=== PATIENT | female | born 1985 | race Hispanic/Latino ===

== ENCOUNTER 2017-03-16 04:46 | Emergency (ER) | payer MEDICAID ==
[2017-03-16 05:26] LABS: Eosinophils % (Auto) 2.1 % (0.0-4.3); Hematocrit 40.1 % (30.3-42.9); Hemoglobin 13.8 gm/dl (10.1-14.3); Mean Corpuscular HGB Conc 35 % (30-34); Mean Corpuscular Hemoglobin 29 pg (28-32); Mean Corpuscular Volume 85 fl (79-97); Platelet Count 354 K/mm3 (140-440); Red Blood Count 4.71 M/mm3 (3.65-5.03); White Blood Count 10.7 K/mm3 (4.5-11.0)
[2017-03-16 05:48] LABS: Alanine Aminotransferase 17 units/L (7-56); Albumin 4.1 g/dL (3.9-5); Albumin/Globulin Ratio 1.3 %; Alkaline Phosphatase 60 units/L (35-129); Anion Gap 19 mmol/L; Blood Urea Nitrogen 9 mg/dL (7-17); Calcium 8.9 mg/dL (8.4-10.2); Carbon Dioxide 21 mmol/L (22-30); Chloride 100.2 mmol/L (98-107); Glucose 94 mg/dL (65-100); Potassium 3.9 mmol/L (3.6-5.0); Sodium 136 mmol/L (137-145); Total Protein 7.2 g/dL (6.3-8.2)
[2017-03-16 06:06] LABS: Bilirubin,Urine NEG (Negative); Blood,Urine MOD (Negative); Ketones,Urine NEG (Negative); Leukocyte Esterase,Urine TR (Negative); Nitrite,Urine NEG (Negative); Protein,Urine <15 mg/dL mg/dL (Negative); Urobilinogen,Urine < 2.0 mg/dL (<2.0)
[2017-03-16] MEDS ORDERED: TORADOL IM ONE (10:05)
--- NOTE | 2017-03-16 10:07 | Emergency Department Report ---
HPI - General Chief Complaint: Abdominal Pain Time Seen by Provider: 03/16/17 09:47 - HPI HPI: This is a 31-year-old female presents to the emergency department with complaint of pain towards the pelvis and/or vagina that has been going on for the past 4-5 days. It got very sharp today which is what brought her in to be seen. The patient has a history of kidney stones and says that she thinks she might be passing a stone and she has had this pain in the past. She says she has required "surgery" for kidney stones in the past as well. She also has a past medical history of arthritis and GERD. At first the patient thought she might be having a yeast infection and took Diflucan but it did not get any better. However she denies any vaginal bleeding, vaginal discharge but does have some dysuria or pressure when urinating. She denies any fever, nausea, vomiting. Primary care doctor is Dr. Romel Spence. She also has a urologist. ED Past Medical Hx - Past Medical History Previous Medical History?: Yes Hx GERD: Yes Hx Renal Disease: Yes (kidney stones) Hx Arthritis: Yes Hx Kidney Stones: Yes - Surgical History Past Surgical History?: Yes Additional Surgical History: Surgery for kidney stone 08/20/2013 - Social History Smoking Status: Current Every Day Smoker Substance Use Type: None - Medications Home Medications: Home Medications Medication Instructions Recorded Confirmed Last Taken Type ALPRAZolam [Alprazolam] 1 mg PO PRN PRN 11/18/15 11/24/15 11/23/15 History Omeprazole [PriLOSEC] 20 mg PO QDAY PRN 11/18/15 11/24/15 11/21/15 History HYDROcodone/APAP 5-325 [[place] 1 each PO Q6HR PRN #10 tablet 03/16/17 Unknown Rx 5-325 mg TAB] ED Review of Systems ROS: Stated complaint: FLANK PAIN Other details as noted in HPI Comment: All other systems reviewed and negative Constitutional: denies: chills, fever Eyes: denies: eye pain, eye discharge, vision change ENT: denies: ear pain, throat pain Respiratory: denies: cough, shortness of breath, wheezing Cardiovascular: denies: chest pain, palpitations Gastrointestinal: denies: nausea, vomiting Genitourinary: dysuria, other (pelvic/vaginal pain) Musculoskeletal: denies: back pain, joint swelling, arthralgia Skin: denies: rash, lesions Neurological: denies: headache, weakness, paresthesias Physical Exam - Physical Exam Vital Signs: Vital Signs 03/16/17 05:02 Temperature 98.7 F Pulse Rate 62 Respiratory 18 Rate Blood Pressure 123/85 O2 Sat by Pulse 99 Oximetry Physical Exam: GENERAL: The patient is well-developed well-nourished. HEENT: Normocephalic. Atraumatic. Extraocular motions are intact. Patient has moist mucous membranes. Pupils equal reactive to light bilaterally. NECK: Supple. Trachea is mid line. CHEST/LUNGS: Clear to auscultation. There is no respiratory distress noted. HEART/CARDIOVASCULAR: Regular. There is no tachycardia. There is no gallop rub or murmur. ABDOMEN: Abdomen is soft, nontender. Patient has normal bowel sounds. There is no abdominal distention. SKIN: Skin is warm and dry. NEURO: The patient is awake, alert, and oriented. The patient is cooperative. The patient has no focal neurologic deficits. The patient has normal speech. MUSCULOSKELETAL: There is no tenderness or deformity. There is no limitation range of motion. There is no evidence of acute injury. ED Course Vital Signs 03/16/17 05:02 Temperature 98.7 F Pulse Rate 62 Respiratory 18 Rate Blood Pressure 123/85 O2 Sat by Pulse 99 Oximetry ED Medical Decision Making - Lab Data Result diagrams: 03/16/17 05:09 03/16/17 05:09 - Medical Decision Making 31-year-old female presents with concern for possible kidney stone as she has some pressure in her discomfort towards the vagina which is where she says she previously has had pain from a kidney stone. She denies any vaginal bleeding, vaginal discharge, dysuria but trying to urinate does make it worse. It is been going on for 5 days but became sharper earlier today. She has not taken anything for symptoms. Her labs are most unremarkable. There is no urinary tract infection, significant hematuria and the patient is not . The rest the labs are also unremarkable and do not show any etiology of her symptoms. I told the patient that we should do a CT of the abdomen and pelvis without contrast to look along the urinary tract for calculus versus other etiology of her symptoms. However the patient was already late for work and did not want to stay for any further workup. She says she has follow-up with a primary care doctor and a urologist. She was encouraged to follow up with these physicians but return to the emergency department with any worsening of her symptoms or if she changes her mind regarding the CT imaging. - Differential Diagnosis nephrolithiasis, fibroid, UTI, Critical Care Time: No Critical care attestation.: If time is entered above; I have spent that time in minutes in the direct care of this critically ill patient, excluding procedure time. ED Disposition Clinical Impression: History of kidney stones, Vaginal discomfort Disposition: DC- TO HOME OR SELFCARE Is pt being admited?: No Condition: Stable Instructions: Renal Colic (ED) Additional Instructions: Please follow-up with your primary care doctor in the next few days regarding your symptoms. Return to the emergency department with any worsening of her symptoms, if you change your mind about CT or ultrasound imaging, or with any acute distress. You've been prescribed a medication that is sedating. Therefore this medication cannot be mixed with alcohol, or taken prior to driving, working, or being responsible for children. Prescriptions: HYDROcodone/APAP 5-325 [[place] 5-325 mg TAB] 1 each PO Q6HR PRN #10 tablet PRN Reason: Pain Referrals: PRIMARY CARE, [Primary Care Provider] - 3-5 Days
[2017-03-16 10:22] VITALS: BP 128/67
== END 2017-03-16 10:23 | disposition home or self-care (01) ==
LOC: ED 04:46
DX: R10.2 Pelvic and perineal pain (principal); K21.9 Gastro-esophageal reflux disease without esophagitis; M19.90 Unspecified osteoarthritis, unspecified site; F17.200 Nicotine dependence, unspecified, uncomplicated; Z87.442 Personal history of urinary calculi
CPT/HCPCS: 36415; 80053; 81001; 84703; 85025; 96372; 99283; J1885

== ENCOUNTER 2017-09-03 15:27 | Emergency (ER) | payer MEDICAID | END 2017-09-03 15:39 | disposition left against medical advice (07) | LOC: ED 15:27 | DX: M54.9 Dorsalgia, unspecified (principal); Z53.21 Procedure and treatment not carried out due to patient leaving prior to being seen by health care provider ==

== ENCOUNTER 2019-07-31 18:28 | Emergency (ER) | payer MEDICAID ==
[2019-07-31 18:34] VITALS: BP 153/77
--- NOTE | 2019-07-31 18:35 | Emergency Department Report ---
Blank Doc - Documentation Documentation: 33-year-old female that presents with nosebleed and headaches. Stated is acute. This initial assessment/diagnostic orders/clinical plan/treatment(s) is/are subject to change based on patient's health status, clinical progression and re- assessment by fellow clinical providers in the ED. Further treatment and workup at subsequent clinical providers discretion. Patient/guardians urged not to elope from the ED as their condition may be serious if not clinically assessed and managed. Initial orders include: 1- Patient sent to [facility] for further evaluation and treatment 2- CT
--- NOTE | 2019-07-31 21:41 | Emergency Department Report ---
Minor Respiratory - HPI Chief Complaint: Headache Stated Complaint: NOSE BLEED Time Seen by Provider: 07/31/19 18:33 Minor Respiratory: Yes Rhinorrhea, Yes Able to Tolerate Fluids, No Sore Throat, No Ear Pain, No Cough, No Sick Contacts, No Hemoptysis, No Chest Pain, No Shortness of Breath, No Fever Other History: This is a 33-year-old healthy female who presents to ED complaining of 2 episodes of nosebleed best study yesterday. Patient states thatit lasted a couple of minutes and then resolves. Patient states that she also had another episode today. Patient presents today to be evaluated. Patient noted that she had cold-like symptoms with sneezing, runny nose for the past 3-4 days. Patient also stated that she is sleeping under a fan for the past week. She denies any trauma or injuries. She also denies any genetic bleeding disorder ED Review of Systems ROS: Stated complaint: NOSE BLEED Other details as noted in HPI Comment: All other systems reviewed and negative ED Past Medical Hx - Past Medical History Previous Medical History?: Yes Hx GERD: Yes Hx Renal Disease: Yes (Stones in the past) Hx Arthritis: Yes (GENERALIZED; HANDS AND JOINTS) Hx Kidney Stones: Yes (MEDICAL INTER REQ.) Hx HIV: No - Surgical History Past Surgical History?: Yes Additional Surgical History: Surgery for kidney stone 08/20/2013 - Social History Smoking Status: Former Smoker Substance Use Type: Alcohol - Medications Home Medications: Home Medications Medication Instructions Recorded Confirmed Last Taken Type ALPRAZolam [Xanax TAB] 2 mg PO TID PRN 07/30/19 07/30/19 Unknown History Carisoprodol [Soma] 350 mg PO TID PRN 07/30/19 07/30/19 Unknown History Ibuprofen [Motrin] 800 mg PO Q8HR PRN 07/30/19 07/30/19 Unknown History Oxymetazoline 0.05% [Vicks Sinex] 1 spray NS DAILY #1 bottle 07/31/19 Unknown Rx Minor Respiratory Exam - Exam General: Vital signs noted. No distress. Alert and acting appropriately. HEENT: Yes Moist Mucous Membranes, Yes Rhinorrhea (greenish, clear turbinates, no bleeding noted), No Pharyngeal Erythema, No Pharyngeal Exudates, No Conjuctival Injection, No Frontal Tenderness, No Maxillary Tenderness Ear: Neither TM Bulge, Neither TM Erythema, Neither EAC Pain, Neither EAC Discharge Neck: Yes Supple, No Adenopathy Lungs: Yes Good Air Exchange, No Wheezes, No Ronchi, No Stridor, No Cough, No Labored Respirations, No Retractions, No Use of Accessory Muscles, No Other Ab normal Lung Sounds Heart: Yes Regular, No Murmur Abdomen: Yes Normal Bowel Sounds, No Tenderness, No Peritoneal Signs Skin: No Rash, No Edema Neurologic: Alert and oriented, no deficits. Musculoskeletal: Unremarkable. ED Course Vital Signs 07/31/19 18:33 Temperature 97.4 F L Pulse Rate 16 L Respiratory 16 Rate Blood Pressure 153/77 O2 Sat by Pulse 96 Oximetry ED Medical Decision Making - Medical Decision Making 33-year-old female presents with epistaxis. ED course: Patient had no bleeding episode a during ED stay. Discussed with mother proper techniques to stop the nosebleeds. Discussed with mother to call ENT doctor as referred. Discussed with patient's mother return if the nosebleed episodes returned without stopping to return to ED Discussed so medication of nasal spray to decrease episodes. Patient's mother verbalizes that she understands and will follow up with the ENT specialist. Vital signs are stable. Patient is in no acute respiratory distress. Critical care attestation.: If time is entered above; I have spent that time in minutes in the direct care of this critically ill patient, excluding procedure time. ED Disposition Clinical Impression: Anterior epistaxis Disposition: DC-01 TO HOME OR SELFCARE Is pt being admited?: No Does the pt Need Aspirin: No Condition: Stable Instructions: Epistaxis (ED), Upper Respiratory Infection (ED) Additional Instructions: Make sure to follow up with the primary care physician as discussed. Take all your medications as you've been prescribed. If you have any worsening symptoms or develop new symptoms please return to ED immediately. Prescriptions: Oxymetazoline 0.05% [Vicks Sinex] 1 spray NS DAILY #1 bottle Referrals: PRIMARY CARE, [Primary Care Provider] - 3-5 Days Forms: AMA Form, Accompanied Note, Work/School Release Form(ED) Time of Disposition: 21:44
== END 2019-07-31 21:45 | disposition home or self-care (01) ==
LOC: ED 18:28
DX: R04.0 Epistaxis (principal); K21.9 Gastro-esophageal reflux disease without esophagitis; M19.90 Unspecified osteoarthritis, unspecified site; F10.10 Alcohol abuse, uncomplicated; Z87.442 Personal history of urinary calculi; Z79.899 Other long term (current) drug therapy; Z87.891 Personal history of nicotine dependence

== ENCOUNTER 2019-08-01 11:01 | Observation (INO) | payer MEDICAID ==
--- NOTE | 2019-07-31 10:20 | Anesthesia Consultation ---
Anesthesia Consult and Med Hx Date of service: 07/31/19 - Airway Anesthetic Teeth Evaluation: Chipped (Missing) ROM Head & Neck: Adequate Mental/Hyoid Distance: Adequate Mallampati Class: Class II Intubation Access Assessment: Good - Pre-Operative Health Status ASA Pre-Surgery Classification: ASA2 Proposed Anesthetic Plan: General Nerve Block: TAP - Pulmonary Hx Smoking: Yes (1 PPD SINCE AGE 19; QUIT 11/2018) - Central Nervous System Hx Neuromuscular Disorder: Yes (arthritis) Hx Psychiatric Problems: Yes (Anxiety) - Gastrointestinal Hx Gastroesophageal Reflux Disease: Yes (Mild-no RX) - Endocrine Hx Renal Disease: Yes (Stones in the past) - Other Systems Hx Alcohol Use: Yes (OCCA) Hx Substance Use: No Hx Cancer: No Hx Obesity: Yes
[2019-07-31 10:26] LABS: Basophils # (Auto) 0.1 K/mm3 (0.0-0.1); Basophils % (Auto) 0.6 % (0.0-1.8); Eosinophils # (Auto) 0.1 K/mm3 (0.0-0.4); Eosinophils % (Auto) 0.8 % (0.0-4.3); Hematocrit 35.6 % (30.3-42.9); Hemoglobin 12.2 gm/dl (10.1-14.3); Lymphocytes % (Auto) 19.8 % (13.4-35.0); Mean Corpuscular HGB Conc 34 % (30-34); Mean Corpuscular Volume 83 fl (79-97); Monocytes # (Auto) 0.7 K/mm3 (0.0-0.8); Monocytes % (Auto) 6.7 % (0.0-7.3); Platelet Count 365 K/mm3 (140-440); Red Blood Count 4.27 M/mm3 (3.65-5.03); Red Cell Distribution Width 12.5 % (13.2-15.2)
[2019-08-01] MEDS ORDERED: BUPIVACAINE-EPINEPHRINE/PF 0.25%-1:200,000 (30 ML) VIAL INFILTRATI ONE (11:02)
[2019-08-01] MEDS ORDERED: fentaNYL 100 MCG/2 ML INJ IV NR (11:02)
[2019-08-01] MEDS ORDERED: dexAMETHasone 4 MG/ML VIAL ONE (11:02)
--- NOTE | 2019-08-01 11:04 | Anesthesia Day of Surgery ---
Anesthesia Day of Surgery - Day of Surgery Patient Examined: Yes Patient H&P Reviewed: Yes Patient is NPO: Yes
[2019-08-01] MEDS ORDERED: OXYMETAZOLINE 0.05% NASAL SPRAY NS ONE (11:11)
[2019-08-01] MEDS ORDERED: ceFAZolin/STERILE WATER 2 GM/20 ML SYRINGE IV NR (11:25)
[2019-08-01] MEDS ORDERED: LACTATED RINGERS 1,000 ML IV SCH (12:00)
[2019-08-01] MEDS ORDERED: MIDAZOLAM 2 MG/2 ML INJ IV NR (12:00)
[2019-08-01] MEDS ORDERED: GABAPENTIN 300 MG CAP PO NR (12:00)
[2019-08-01] MEDS ORDERED: CELECOXIB 200 MG CAP PO NR (12:00)
[2019-08-01] MEDS ORDERED: NEOMY 40 MG/POLYMYXIN B 200,000 UNITS/ML (GU) AMPULE IR ONE ×2 (12:03→13:48)
[2019-08-01] MEDS ORDERED: fentaNYL 100 MCG/2 ML INJ ONE (12:14)
[2019-08-01] MEDS ORDERED: PROPOFOL 200 MG/20 ML VIAL IV ONE (12:15)
[2019-08-01] MEDS ORDERED: ROCURONIUM 50 MG/5 ML INJ IV ONE (12:16)
[2019-08-01] MEDS ORDERED: dexAMETHasone 20 MG/5 ML VIAL ONE (12:19)
[2019-08-01] MEDS ORDERED: LIDOCAINE MPF (2%) 20 MG/1 ML VIAL 5 ML ONE (13:24)
[2019-08-01] MEDS ORDERED: HYDROmorphone 1 MG/1 ML INJ ONE (13:25)
[2019-08-01] MEDS ORDERED: BUPIVACAINE/PF (0.5%) 5 MG/1 ML 30 ML VIAL INFILTRATI ONE ×2 (13:30→15:19)
[2019-08-01] MEDS ORDERED: WATER FOR IRRIG STERILE 1,500 ML BOTTLE IR ONE (13:48)
[2019-08-01] MEDS ORDERED: SODIUM CHLORIDE 0.9% IRRIG SOLN 2000 ML IR ONE (13:48)
[2019-08-01] MEDS ORDERED: SODIUM CHLORIDE 0.9% IRR 1,500 ML BOTTLE IR ONE (13:48)
[2019-08-01] MEDS ORDERED: LACTATED RINGERS 1,000 ML ONE (14:28)
[2019-08-01] MEDS ORDERED: ONDANSETRON 4 MG/2 ML INJ ONE (15:00)
[2019-08-01] MEDS ORDERED: NEOSTIGMINE 10MG/10 ML INJ MDV ONE (15:22)
[2019-08-01] MEDS ORDERED: GLYCOPYRROLATE 0.4 MG/2 ML INJ ONE (15:22)
[2019-08-01] MEDS ORDERED: KETOROLAC 30 MG/1 ML INJ ONE (15:31)
[2019-08-01] MEDS ORDERED: ONDANSETRON 4 MG ODT TAB PO PRN (15:44)
[2019-08-01] MEDS: HYDROmorphone 1 MG/1 ML INJ IV PRN ×2 (15:55→16:05)
[2019-08-01] MEDS ORDERED: D5W/LACTATED RINGERS 1,000 ML IV SCH (16:00)
--- NOTE | 2019-08-01 18:45 | Post Operative Note ---
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 Sounded to 8-9 cm. No evidence of endometriosis. Normal tubes and ovaries (h/O BTL) except on the left, pt has some mild-moderate omental adhesions to the left tube and side wall. Grossly normal abdominal survey. Procedure: 1) Robotic total hysterectomy 2) B/L salpingectomies 3) lysis of adhesions. Procedure: Patient was taken to the operating room and prepped and draped in the usual fashion. Attention was first turned vaginally where the [employer] care uterine manipulator was placed. Large cup was selected and it was placed successfully and without difficulty. Anchoring 0 Vicryl stitches 2 were placed on the cervix. The [place] catheter was then placed in the usual sterile fashion. Attention was then turned abdominally to the left upper quadrant. In the midclavicular line about 2 finger breaths under the costal margin an 8 mm incision was made. Veress needle placed abdominal cavity and the abdomen was insufflated with CO2 gas. There is needle removed and the 8 mm trocar was placed. Placement confirmed with the camera. Attention at this point was turned to the placement of the 3 robotic trochars. First the umbilical 10-12 mm trocar site was made. The trocar was placed successfully and without difficulty. Attention was then turned bilaterally where about 2 finger breadths superior and medial to the ASIS on both sides, an 8 millimeter incision was made. Bilateral 8 mm trochars were then placed under direct visualization and were done successfully without difficulty. Patient then placed in steep Trendelenburg and the robot arms were docked into the trochars at this point. I broke scrub at this point and proceeded to the da Callie console. Attention was first turned to evaluation of the pelvis. Findings noted above. Ureteral peristalsis was noted both at the beginning of the case and at the end of the case. Attention was first turned to the right adnexa. The right fallopian tube was dissected off its attachments using the vessel sealer. Ovarian ligament was clamped and cauterized and cut with the vessel sealer as well. Dissection carried down to the round ligament with the vessel sealer nonetheless sealer clamp cauterizing cut the round ligament. Attention was then turned to the left side. The above noted omental adhesions were lysed using combination of sharp and blunt dissection. Good hemostasis was noted after this portion of the procedure and the left adnexa was much better visualize at this point. At this point the left tube was dissected off in the same fashion as it was on the right and the dissection carried all the way down to and through the round ligament with the vessel sealer was done with equal success on the left side as was on the right. This also included clamping cutting and cauterizing the left ovarian ligament as well. Good hemostasis noted and the ovaries appeared healthy and remained intact. Attention was then turned to creation of the bladder flap which was done successfully using the monopolar scissors. At this point the indentation of the V care Cup was identified anteriorly. Colpotomy incision was made and the V care cuff was clearly visualized. This incision was then extended bilaterally on the anterior side. Attention was then turned posteriorly where the posterior peritoneal flap was created bilaterally. The posterior V care cup indentation was then identified. Colpotomy incision was made posteriorly and the V care cup was identified. The colpotomy incision was then extended bilaterally on the posterior side. At this point attention was tu rned to the left side where the uterine vasculature was skeletonized using the vessel sealer. And then the uterine vasculature was clamped cauterized and cut using the vessel sealer. Good hemostasis was noted. The colpotomy on this left side was then completed. Attention was then turned to the right side where the procedure was done in the exact same fashion and the uterine vasculature was cla mped cauterized and cut with the vessel sealer. Good hemostasis noted and the colpotomy was completed on this side and now the colpotomy was completed 360. Uterus and tubes were removed vaginally at this point. The vaginal cuff was now closed using 0V lock suture in a running fashion. Vaginal cuff was closed successfully and good hemostasis noted. The vaginal cuff was also now able to maintain the pneumoperitoneum on its own. The abdomen was desufflated at this point. Good hemostasis was still noted. Abdomen was then reinsufflated. Pelvis was well irrigated. Mauricio was then applied to all the areas of dissection. Good hemostasis noted throughout and the robotic portion of the procedure was now complete. The robot was undocked and I scrubbed back into the case. Attention was turned vaginally where the vaginal cuff was inspected both visually and with palpation and good integrity was noted. No active bleeding was noted. Attention was now turned laparoscopically. Abdomen and pelvis were assessed more time and good hemostasis noted throughout. At this point the tendon 12 mm umbilical trocar was removed and that site was closed using 0 Vicryl and the Thomas-Corey device. Fascia was closed successfully at that site. At this point the abdomen was fully desufflated. Patient was taken out of Trendelenburg. Attention was turned to closure of the three 8 mm trocar sites which were done in a subcuticular fashion using 4-0 Vicryl. The umbilical trocar site was also closed with 4-0 Vicryl. Local Marcaine applied to all of the trocar sites and the procedure was concluded at this point. Patient tolerated the procedure well. All instrument and lap counts were correct. Patient was taken recovery room in stable condition. Anesthesia: MARYSOL Surgeon: PERLA MUHAMMAD Product Engineering Manager: JUAN SILVA Estimated blood loss: minimal Pathology: list (uterus and tubes) Condition: stable Disposition: PACU
[2019-08-01] MEDS: HYDROcodone/ACETAMINOPHEN 5-325 MG TAB PO PRN (20:40)
--- NOTE | 2019-08-01 21:08 | Post Anesthesia Evaluation ---
- Post Anesthesia Evaluation Patient Participated: Yes Airway Patent: Yes Stable Respiratory Function: Yes Nausea/Vomiting: No Temp > 96.8F: Yes Pain Manageable: Yes Adequeate Hydration: Yes Anesthesia Complications: No Block Receding Appropriately: Yes Patient on Ventilator: No
[2019-08-02] MEDS: IBUPROFEN 600 MG TAB PO PRN ×2 (00:20→09:04)
[2019-08-02] MEDS: HYDROcodone/ACETAMINOPHEN 5-325 MG TAB PO PRN ×2 (03:34→09:05)
[2019-08-02 06:56] LABS: Hematocrit 35.3 % (30.3-42.9); Hemoglobin 11.8 gm/dl (10.1-14.3)
--- NOTE | 2019-08-02 07:01 | Progress Note ---
Assessment and Plan - Patient Problems (1) S/P hysterectomy Current Visit: Yes Status: Acute Plan to address problem: stable POD 1 s/p RAH. PT doing well. Assuming Hgn is WNL and pt can void, pt can go home RTO 2 weeks. Subjective - Subjective Date of service: 08/02/19 Interval history: POD 1 Patient reports: no vaginal bleeding (PT doing well. Positive OOB amb, positive flatus, positve regular diet. Good urine output. Samayoa just removed. Good pain control.) Objective - Vital Signs Vital Signs: Vital Signs - 12hr 08/01/19 08/01/19 08/02/19 19:39 23:03 03:35 Temperature 98.1 F 98.0 F Pulse Rate 95 H 102 H 58 L Respiratory 20 18 Rate Blood Pressure 137/74 135/72 121/70 O2 Sat by Pulse 96 97 91 Oximetry 08/02/19 03:50 Temperature 98.2 F Pulse Rate 70 Respiratory Rate Blood Pressure O2 Sat by Pulse Oximetry - Exam Abdomen: Present: normal appearance, soft (appropriately tender. Wounds C/D/I) - Labs Labs: Abnormal Labs 07/31/19 09:55 RDW 12.5 L Seg Neutrophils % 72.1 H Laboratory Results - last 24 hr 08/01/19 08/02/19 11:30 06:03 Hgb 11.8 Hct 35.3 Blood Type O POSITIVE Antibody Screen Negative
[2019-08-02 08:42] VITALS: BP 123/74
== END 2019-08-02 10:30 | disposition home or self-care (01) ==
LOC: OR 11:01 → OB 15:44
PROVIDERS: ADMIT Obstetrics & Gynecology; ATTEND Obstetrics & Gynecology
DX: R10.2 Pelvic and perineal pain (principal); R87.613 High grade squamous intraepithelial lesion on cytologic smear of cervix (HGSIL); F41.9 Anxiety disorder, unspecified; E78.5 Hyperlipidemia, unspecified; F17.200 Nicotine dependence, unspecified, uncomplicated; Z98.51 Tubal ligation status; Z90.49 Acquired absence of other specified parts of digestive tract; Z90.710 Acquired absence of both cervix and uterus; Z98.49 Cataract extraction status, unspecified eye
CPT/HCPCS: 36415; 58571; 64450; 84703; 85014; 85018; 85025; 86850; 86900; 86901; 88307; 96374; A4217; G0378; J0690; J1100; J1170; J1885; J2250; J2405; J2710; J3010; J7120; J7121; S2900; J2704

== ENCOUNTER 2021-06-26 21:22 | Emergency (ER) | payer MEDICAID, OTHER ==
[2021-06-26 21:38] VITALS: BP 124/92
[2021-06-26] MEDS ORDERED: IBUPROFEN 600 MG TAB PO ONE (22:50)
[2021-06-26] MEDS ORDERED: ACETAMINOPHEN 500 MG TAB PO ONE (22:50)
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
== END 2021-06-27 03:22 | disposition home or self-care (01) ==
LOC: ED 21:22
DX: S46.911A Strain of unspecified muscle, fascia and tendon at shoulder and upper arm level, right arm, initial encounter (principal); S46.912A Strain of unspecified muscle, fascia and tendon at shoulder and upper arm level, left arm, initial encounter; S29.011A Strain of muscle and tendon of front wall of thorax, initial encounter; M62.830 Muscle spasm of back; K21.9 Gastro-esophageal reflux disease without esophagitis; V49.49XA Driver injured in collision with other motor vehicles in traffic accident, initial encounter; Y93.89 Activity, other specified; Y92.89 Other specified places as the place of occurrence of the external cause; Y99.8 Other external cause status
CPT/HCPCS: 99281

== ENCOUNTER 2021-07-24 04:05 | Emergency (ER) | payer SELFPAY ==
[2021-07-24] MEDS ORDERED: ACETAMINOPHEN 500 MG TAB PO ONE (05:25)
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
[2021-07-24] MEDS ORDERED: NEOMY 3.5 MG/BACIT 400 UNITS/POLY B 5000 UNITS/GM OINT PACKET TP ONE (06:48)
[2021-07-24] MEDS ORDERED: TETANUS,DIPH,PERTUSS(ACELL) VACCINE 0.5 ML SYRINGE IM ONE ×2 (07:15→08:31)
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
[2021-07-24] MEDS ORDERED: BACITRACIN/POLYMYXIN B OINT 28.35 GM TP ONE (07:48)
[2021-07-24] MEDS ORDERED: HYDROcodone/ACETAMINOPHEN 5-325 MG TAB PO ONE (07:52)
[2021-07-24 08:49] VITALS: BP 122/71
== END 2021-07-24 08:49 | disposition home or self-care (01) ==
LOC: ED 04:05
DX: S09.90XA Unspecified injury of head, initial encounter (principal); S00.01XA Abrasion of scalp, initial encounter; Y04.8XXA Assault by other bodily force, initial encounter; F17.200 Nicotine dependence, unspecified, uncomplicated; F10.20 Alcohol dependence, uncomplicated; Y93.89 Activity, other specified; Y92.89 Other specified places as the place of occurrence of the external cause; Y99.8 Other external cause status
CPT/HCPCS: 70450; 72125; 90471; 90715; 99283

== ENCOUNTER 2022-04-06 10:30 | Day surgery (SDC) | payer OTHER ==
[~2022-04-06 10:30] MED LIST: HYDROmorphone 1 MG/1 ML INJ ONE; LIDOCAINE MPF (2%) 20 MG/1 ML VIAL 5 ML ONE; ONDANSETRON 4 MG/2 ML INJ ONE; dexAMETHasone 20 MG/5 ML VIAL ONE; ePHEDrine SULFATE 50 MG/1 ML INJ ONE; propofoL 200 MG/20 ML VIAL IV ONE
[2022-04-06] MEDS ORDERED: ceFAZolin/Water 2 GM/20 ML 2 GM/20 ML SYRINGE IV ONE (11:31)
[2022-04-06] MEDS ORDERED: LACTATED RINGERS 1,000 ML ONE (11:31)
--- NOTE | 2022-04-06 11:56 | Anesthesia Consultation ---
Anesthesia Consult and Med Hx Date of service: 04/06/22 - Airway Anesthetic Teeth Evaluation: Good ROM Head & Neck: Adequate Mental/Hyoid Distance: Adequate Mallampati Class: Class II Intubation Access Assessment: Probably Good - Pre-Operative Health Status ASA Pre-Surgery Classification: ASA2 - Pulmonary Hx Smoking: Yes (1 PPD SINCE AGE 19) Hx Asthma: No Hx Pneumonia: No Hx Sleep Apnea: No (snoring) - Central Nervous System Hx Neuromuscular Disorder: Yes (arthritis) Hx Psychiatric Problems: Yes (Anxiety) - Gastrointestinal Hx Gastroesophageal Reflux Disease: Yes (Mild-no RX) - Endocrine Hx Renal Disease: Yes (kidney stones) - Other Systems Hx Alcohol Use: Yes (OCCA) Hx Substance Use: No Hx Cancer: No Hx Obesity: Yes
--- NOTE | 2022-04-06 11:57 | Anesthesia Day of Surgery ---
Anesthesia Day of Surgery - Day of Surgery Patient Examined: Yes Patient H&P Reviewed: Yes Patient is NPO: Yes
[2022-04-06] MEDS ORDERED: SCOPOLAMINE TRANSDERMAL PATCH 72 HR TD NR (12:00)
[2022-04-06] MEDS ORDERED: MIDAZOLAM 2 MG/2 ML INJ IV NR (12:00)
[2022-04-06] MEDS ORDERED: GABAPENTIN 300 MG CAP PO NR (12:00)
[2022-04-06] MEDS ORDERED: FAMOTIDINE 20 MG/2 ML INJ IV NR (12:30)
[2022-04-06] MEDS ORDERED: CELECOXIB 200 MG CAP PO NR (12:30)
[2022-04-06] MEDS ORDERED: LACTATED RINGERS 1,000 ML IV SCH (12:30)
[2022-04-06] MEDS ORDERED: ceFAZolin/STERILE WATER 2 GM/20 ML SYRINGE IV ONE (13:00)
--- NOTE | 2022-04-06 13:10 | Cat Scan Report ---
CT ABDOMEN AND PELVIS WITHOUT CONTRAST INDICATION / CLINICAL INFORMATION: KIDNEY STONE. TECHNIQUE: Axial CT images were obtained through the abdomen and pelvis without IV contrast. All CT scans at this location are performed using CT dose reduction for ALARA by means of automated exposure control. COMPARISON: None available. FINDINGS: LOWER CHEST: No significant abnormality. LIVER: No significant abnormality. GALLBLADDER: No significant abnormality. BILE DUCTS: No significant abnormality. PANCREAS: No significant abnormality. SPLEEN: No significant abnormality. ADRENALS: No significant abnormality. RIGHT KIDNEY / URETER: 9 mm obstructing stone in the proximal right ureter. Moderate hydronephrosis. Mild periureteral and perinephric stranding. LEFT KIDNEY / URETER: No significant abnormality. STOMACH / SMALL BOWEL: No significant abnormality. COLON: No significant abnormality. APPENDIX: No significant abnormality. PERITONEUM: No free fluid. No free air. No fluid collection. LYMPH NODES: No significant adenopathy. AORTA / ARTERIES: No significant abnormality. IVC / VEINS: No significant abnormality. URINARY BLADDER: No significant abnormality. REPRODUCTIVE ORGANS: Uterus is absent. No significant adnexal abnormality. ADDITIONAL FINDINGS: None. SKELETAL SYSTEM: No significant abnormality. IMPRESSION: 1. Right ureteral obstructing stone measuring 9 mm with moderate hydronephrosis. Signer Name: Natividad Paulino MD Signed: 04/06/2022 1:06 PM Workstation Name: [id number]
[2022-04-06] MEDS ORDERED: fentaNYL 100 MCG/2 ML INJ ONE (15:57)
--- NOTE | 2022-04-06 16:09 | Post Operative Note ---
Date of procedure: 04/06/22 Pre-op diagnosis: r ureteral stone Post-op diagnosis: same Findings: large stione Procedure: cysto rpg ureteroscpy laser sstent Anesthesia: MARYSOL Surgeon: CAROLINA OLIVARES Estimated blood loss: none Pathology: none Condition: stable Disposition: PACU
--- NOTE | 2022-04-06 16:10 | Discharge Summary ---
Short Stay Discharge Plan Activity: no restrictions, other (no stain) Weight Bearing Status: Full Weight Bearing Diet: low fat, low cholesterol, low salt Special Instructions: other (inc fluids ) Durable Medical Equipment Needed Upon Discharge: other (stent ) Follow up with: ANDREAS ABBOTT MD [Primary Care Provider] - 7 Days CAROLINA OLIVARES MD [Staff Physician] - 14 Days
[2022-04-06] MEDS ORDERED: WATER FOR IRRIG STERILE 2000 ML IR ONE (16:26)
[2022-04-06] MEDS ORDERED: WATER FOR IRRIG STERILE 1,500 ML BOTTLE IR ONE (16:26)
[2022-04-06] MEDS ORDERED: GENTAMICIN/NS 120MG/100ML 120 MG/100 ML BAG IV ONE (16:30)
[2022-04-06] MEDS ORDERED: ONDANSETRON 4 MG/2 ML INJ IV PRN (16:40)
[2022-04-06] MEDS ORDERED: HYDROmorphone 0.5 MG/0.5 ML INJ IV PRN ×2 (16:40)
--- NOTE | 2022-04-06 16:53 | Fluoroscopy Report ---
INTRAOPERATIVE FLUOROSCOPY: RETROGRADE UROGRAPHY INDICATION: RT URETERAL CALCULUS. TECHNIQUE: Intraoperative spot images were obtained during the procedure. FINDINGS: On the snuff container inspector image there is a stone in the mid right ureter. This is confirmed by the presence of a f illing defect after the administration of contrast. Subsequent images show interval placement of a do uble-J right ureteral stent. Fluoroscopy Time: 1.5 minutes. Fluoroscopy Images: 5. Signer Name: Obi Fischer MD Signed: 04/06/2022 4:49 PM Workstation Name: [email or web address]
[2022-04-06 17:08] VITALS: BP 142/67
--- NOTE | 2022-04-06 19:03 | Operative Report ---
DATE OF SURGERY: 04/06/2022 PREOPERATIVE DIAGNOSIS: Impacted right upper ureteral stone for 6 months or more. POSTOPERATIVE DIAGNOSIS: Impacted right upper ureteral stone for 6 months or more. PROCEDURES: Cystoscopy, right retrograde; right flexible ureteroscopy with laser of stone into multiple fragments and insertion of double-J stent. SURGEON: John Rosado MD. ANESTHESIA: General. FINDINGS: This is a woman who has had a stone for quite some time, had issues with insurance and presented yesterday to the office. When she presented, I scheduled the case early, but there were some insurance issues, so it is being done later in the day. No fevers or chills. Occasional nausea. DESCRIPTION OF PROCEDURE: The patient was brought to the operating room and placed on the operating table. Following induction of anesthesia, placed in lithotomy position, prepped and draped in usual sterile fashion. Cystourethroscopy showed a stone at the upper ureter. Two wires eventually coiled in the kidney. Ureteroscopy with the single action pump showed the stone and we were able to laser it into about 15 pieces. Some went up to the kidney. The patient tolerated the procedure well. A double-J was left in the kidney. We did not leave a string. We want to leave the stent in for about two weeks. She tolerated the procedure well, everything was wide open and brought to recovery in stable condition. TID: [id number] RECEIPT: [id number] WARREN/AKIRA/MARKUS
--- NOTE | 2022-04-06 19:04 | Post Anesthesia Evaluation ---
- Post Anesthesia Evaluation Patient Participated: Yes Airway Patent: Yes Stable Respiratory Function: Yes Nausea/Vomiting: No Temp > 96.8F: Yes Pain Manageable: Yes Adequeate Hydration: Yes Anesthesia Complications: No Block Receding Appropriately: Not Applicable Patient on Ventilator: No
== END 2022-04-06 17:25 | disposition home or self-care (01) ==
LOC: OR 10:30
PROVIDERS: ATTEND Urology
DX: N20.1 Calculus of ureter (principal); E78.00 Pure hypercholesterolemia, unspecified; K21.9 Gastro-esophageal reflux disease without esophagitis; E66.9 Obesity, unspecified; F41.9 Anxiety disorder, unspecified; H00.011 Hordeolum externum right upper eyelid; M19.90 Unspecified osteoarthritis, unspecified site; F17.210 Nicotine dependence, cigarettes, uncomplicated; Z80.1 Family history of malignant neoplasm of trachea, bronchus and lung; Z80.8 Family history of malignant neoplasm of other organs or systems; Z79.899 Other long term (current) drug therapy; Z90.710 Acquired absence of both cervix and uterus; Z98.51 Tubal ligation status; Z98.890 Other specified postprocedural states; Z72.89 Other problems related to lifestyle; Z68.32 Body mass index [BMI] 32.0-32.9, adult
CPT/HCPCS: 52356; 74176; 74420; C1758; C1769; C2617; J0690; J1100; J1170; J1580; J2250; J2405; J2704; J3010; J3490; J7120; Q9967